=== PATIENT | male | born 1960 | race Caucasian/White ===

== ENCOUNTER 2016-05-17 13:56 | Emergency (ER) | payer OTHER ==
--- NOTE | ~2016-05-17 | CR210 ---
[facility] A Service of [facility] & [facility] RADIOLOGY TEXT RESULTS PATIENT: LOIS DAVIS LOCATION: [facility] : 56 UNIT #: [id number] AGE: [address]: Nataliya Fierro SEX: M ORDER DR: [id number] [facility] [address] [place], [place] [address] [id number] E MR#: [id number] Acc #: [id number] NAME: LOIS DAVIS : 1960 SEX: M STUDY DATE/TIME: 05/17/2016 UNIT: [facility] ROOM: STUDY DESCRIPTION: CR Ribs Uni 2 View W PA Lt Attending Physician: Nataliya Fierro P.A.-C. Ordering Physician: Nataliya Fierro P.A.-C. Primary Care Physician: Larry Grady M.D. MEDICAL IMAGING REPORT This report is preliminary unless electronic signature is present EXAM Chest with left rib series, 05/17/2016, 1333 hours. HISTORY 55-year-old male who fell 2 nights ago complaining of left chest and rib pain. History of COPD. COMPARISON STUDIES Chest film, 06/09/2014. FINDINGS The upright chest film demonstrates emphysematous changes and horizontal linear densities at both bases, most consistent with scar, unchanged from 06/09/2014. There is no pleural effusion or pneumothorax. AP and oblique views of the left ribs suggest osteopenia. There is mild deformity of the far anterior left ribs and the mid rib region at approximately the 7th and 8th ribs on 1 steep oblique view where it is difficult to count all of the ribs, due to technique. It is favored that these represent old rib fracture deformities rather than acute findings, but correlation with the site of the patient's discomfort is needed. IMPRESSION 1. Emphysematous changes with stable scarring at the bases. No pleural effusion or pneumothorax. 2. Rib detail films are somewhat limited by osteopenia and technique. There are bowing deformities of 2 of the anterior mid left ribs, seen on a steep oblique view where it is difficult to count the ribs. This could be the 7th and 8th or 8th and 9th ribs. It is favored these are related to old healed rib fracture deformities, although acute nondisplaced rib surgeries cannot be excluded. Suggest correlation with the site of the patient's discomfort. [facility] A Service of [facility] RADIOLOGY TEXT RESULTS PATIENT: LOIS DAVIS LOCATION: [facility] : 56 UNIT #: [id number] AGE: [address]: Nataliya Fierro SEX: M ORDER DR: Dictated by... Esther Huston M.D. THIS IS AN ELECTRONICALLY VERIFIED REPORT Esther Huston M.D. at 05/17/2016 6:59 PM Yousif TD: 05/17/2016 17:34 JOB #: [id number] MEDICAL IMAGING REPORT COPY
--- NOTE | ~2016-05-17 | CR58 ---
[facility] A Service of [facility] & [facility] RADIOLOGY TEXT RESULTS PATIENT: LOIS DAVIS LOCATION: [facility] : 56 UNIT #: [id number] AGE: [address]: Nataliya Fierro SEX: M ORDER DR: [id number] [facility] [address] [place], [place] [address] [id number] E MR#: [id number] Acc #: [id number] NAME: LOIS DAVIS : 1960 SEX: M STUDY DATE/TIME: 05/17/2016 1342 UNIT: [facility] ROOM: STUDY DESCRIPTION: CR Cervical Spine 2 or 3 Views Attending Physician: Nataliya Fierro P.A.-C. Ordering Physician: Nataliya Fierro P.A.-C. Primary Care Physician: Larry Grady M.D. MEDICAL IMAGING REPORT This report is preliminary unless electronic signature is present EXAM Cervical spine series 05/17/2016 1342 hours HISTORY Patient fell 2 nights ago with complaint of neck pain and back pain. COMPARISON None. FINDINGS AP, lateral, open-mouth and swimmer's views were performed. C1-T1 are visualized. There is no prevertebral soft tissue swelling, vertebral body or disc height loss. There is mild to moderate multilevel facet degenerative change. IMPRESSION There is no fracture, subluxation or significant disc height loss. There is multilevel facet degenerative change. No prevertebral soft tissue swelling. Dictated by... Esther Huston M.D. THIS IS AN ELECTRONICALLY VERIFIED REPORT Esther Huston M.D. at 05/17/2016 6:59 PM SALO/aleshia TD: 05/17/2016 17:46 JOB #: [id number] MEDICAL IMAGING REPORT COPY
--- NOTE | ~2016-05-17 | CR243 ---
[facility] A Service of [facility] & [facility] RADIOLOGY TEXT RESULTS PATIENT: LOIS DAVIS LOCATION: [facility] : 56 UNIT #: [id number] AGE: [address]: Nataliya Fierro SEX: M ORDER DR: [id number] [facility] [address] [place], [place] [address] [id number] E MR#: [id number] Acc #: [id number] NAME: LOIS DAVIS : 1960 SEX: M STUDY DATE/TIME: 05/17/2016 1340 UNIT: [facility] ROOM: STUDY DESCRIPTION: CR Thoracic Spine 3 Views Attending Physician: Nataliya Fierro P.A.-C. Ordering Physician: Nataliya Fierro P.A.-C. Primary Care Physician: Larry Grady M.D. MEDICAL IMAGING REPORT This report is preliminary unless electronic signature is present EXAM Thoracic spine series 05/17/2016 1340 hours HISTORY Patient fell 2 nights ago with back pain and rib pain. AP and lateral views of the thoracic spine were performed with lateral swimmer's view and coned AP view of the thoracolumbar junction. FINDINGS There are compression fractures of the mid thoracic spine with focal kyphosis. There is ablation of the disc space at the T8-9 level representing a change and progression from 06/09/2014. There was compression fracture at this level but loss of the disc space is new. The upper thoracic spine is intact. IMPRESSION There are mid thoracic compression fractures with loss of the disc space at approximately T8-T9. The compression fractures were present on lateral view chest 06/09/2014 but loss of the disc space and blurring of the endplates is new. Correlate with site of patient's discomfort. No new fractures are seen. There is no deviation of the left paraspinous line to suggest an acute hematoma. Dictated by... Esther Huston M.D. THIS IS AN ELECTRONICALLY VERIFIED REPORT Esther Huston M.D. at 05/17/2016 6:59 PM Krysta TD: 05/17/2016 17:39 JOB #: [id number] [facility] A Service of [facility] RADIOLOGY TEXT RESULTS PATIENT: LOIS DAVIS LOCATION: [facility] : 56 UNIT #: [id number] AGE: [address]: Nataliya Fierro SEX: M ORDER DR: MEDICAL IMAGING REPORT COPY
== END 2016-05-17 14:45 | disposition home or self-care (01) ==
LOC: CFTX 13:56
DX: S22.060A Wedge compression fracture of T7-T8 vertebra, initial encounter for closed fracture (principal); S22.070A Wedge compression fracture of T9-T10 vertebra, initial encounter for closed fracture; J44.9 Chronic obstructive pulmonary disease, unspecified; Z90.89 Acquired absence of other organs; F17.210 Nicotine dependence, cigarettes, uncomplicated; W01.0XXA Fall on same level from slipping, tripping and stumbling without subsequent striking against object, initial encounter; Y92.009 Unspecified place in unspecified non-institutional (private) residence as the place of occurrence of the external cause
CPT/HCPCS: 71101; 72040; 72072; 99284